=== PATIENT | female | born 1970 | race Caucasian/White ===

== ENCOUNTER 2016-12-17 14:08 | Emergency (ER) | payer BC ==
[2016-10-04 12:24] VITALS: BMI 36.3
[~2016-12-17 14:08] MED LIST: VENTOLIN HFA18 GM INH
== END 2016-12-17 16:40 | disposition home or self-care (01) ==
LOC: D.ER 14:08
DX: S31.811A Laceration without foreign body of right buttock, initial encounter (principal); S51.811A Laceration without foreign body of right forearm, initial encounter; J45.909 Unspecified asthma, uncomplicated; W18.39XA Other fall on same level, initial encounter; Y93.89 Activity, other specified; Y92.019 Unspecified place in single-family (private) house as the place of occurrence of the external cause

== ENCOUNTER 2018-04-24 10:51 | Outpatient (CLI) | payer BC ==
[~2018-04-24] VITALS: Ht 154.9 cm; Wt 89.7 kg
--- NOTE | ~2018-04-24 | OP ---
PATIENT NAME: SHANTEL VALERA MEDICAL RECORD: [id number] :72 LOCATION:D.CAT ADMISSION DATE: SURGEON: AMBAR ENRIQUEZ MD DATE OF OPERATION: 04/24/2018 PROCEDURE: Lead portion of permanent pacemaker placement. INDICATION: Symptomatic bradyarrhythmias. SURGEON: Nhan Tolbert MD DESCRIPTION OF PROCEDURE: After left subclavian was cannulated via modified Seldinger technique via Dr. Tolbert first under fluoroscopic guidance, I placed the RV lead into the RV apex without difficulty. After adequate thresholds and R waves were obtained, again under fluoroscopic guidance, I placed the right atrial lead in right atrial appendage without difficulty. After adequate P waves and thresholds were obtained, lead was attached to appropriate poles of the generator and the pocket was closed via Dr. Tolbert. IMPRESSION: Successful lead portion of permanent pacemaker placement. COMPLICATIONS: None. ESTIMATED BLOOD LOSS: Minimal. DISPOSITION: To the floor, stable. TRANSINT:[id number] Voice Confirmation ID: [id number] DOCUMENT ID: [id number] AMBAR ENRIQUEZ MD at 0849 CC: [id number] DICTATION DATE: 04/24/18 1401 FRONT DESK ATTENDANT: 04/24/18 1422 DEP CLI 04/25/18 [id number] [place] [address]
--- NOTE | ~2018-04-24 | HEMODYNAMI ---
PATIENT:SHANTEL VALERA MEDICAL RECORD: [id number] : 72 LOCATION:SLAVA ADMISSION DATE: 04/24/18 Generatedon:04/24/201814:16 Patient name: SHANTEL VALERA Patient #: [id number] SSN: D OB: 1970 Date of study: 04/24/2018 Page: Of Hemodynamic Procedure Report Patient Data Patient Demographics Procedure consent was obtained First Name: SHANTEL Gender: Female Last Name: SOTO : 1970 [facility] Initial: E Age: 47 year(s) Patient #: [id number] Race: Unknown Additional ID: [id number] Contact details Address: [address] [place] [address] [facility] State: [place] City: [place] Zip code: [address] Past Medical History Allergies Allergen Reaction Date Comments Reported Adhesive tape 10/04/2016 Other allergy 04/24/2018 ADHESIVE TAPE, BANDAID Admission Admission Data Admission Date: 04/24/2018 Admission Time: 10:51 Admit Source: Other Lab Results Lab Result Date: 04/24/2018 Lab Result Time: 0:00 Biochemistry Name Units Result Min Max BUN mg/dl 6 -*(----)-- 7 18 Creatinine mg/dl 0.9 --(-*--)-- 0.6 1.3 CBC Name Units Result Min Max Hemoglobin g/dl 10.7 *-(----)-- 13.5 17.5 Procedure Procedure Types Cath Procedure Diagnostic Procedure PPM/ICD PPM Dual Implant Loop Recorder Removal Sedation Charges Moderate Sedation up to 30 minutes Procedure Description Procedure Date Procedure Date: 04/24/2018 Procedure Start Time: 13:40 Procedure End Time: 14:14 Procedure Staff Name Function Lior Wharton MD Performing Physician Nhan Marion MD Assisting physician Vi Valdes RT Monitor Klever Rodriguez RT Scrub David Guerrero RN Nurse Procedure Data Cath Procedure Fluoroscopy Diagnostic fluoroscopy Total fluoroscopy Time: 1.6 time: 1.6 min min Diagnostic fluoroscopy Total fluoroscopy dose: 23 dose: 23 mGy mGy Estimated blood loss: 10 ml Procedure Complications No complications Procedure Medications Medication Administration Route Dosage Zofran I.V. 4 mg Ancef (1Gm/50ml NS) I.V.P.B 1 g Ancef Irrigation Topical 1 g (1gm/500ml NS) Fentanyl I.V. 50 mcg Versed I.V. 1 mg Fentanyl I.V. 50 mcg Versed I.V. 1 mg Fentanyl I.V. 50 mcg Fentanyl I.V. 50 mcg Hemodynamics Rest HGB: 10.7 (g/dl) Heart Rate: 54 (bpm) Snapshots Pre Cath Intra NCS Post Cath Vital Signs Time Heart Resp SPO2 etCO2 NIBP (mmHg) Rhythm Pain Sedation Rate (ipm) (%) (mmHg) Status Level (bpm) 13:15:39 53 18 100 0 134/78(104) NSR 0 (11) 10(A) , No pain 13:21:03 50 17 98 0 128/80(99) NSR 0 (11) 10(A) , No pain 13:25:31 52 16 99 0 133/74(88) NSR 0 (11) 10(A) , No pain 13:29:53 51 17 99 0 119/74(94) NSR 0 (11) 10(A) , No pain 13:34:13 51 17 98 0 127/68(96) NSR 0 (11) 10(A) , No pain 13:38:36 53 18 99 0 122/70(93) NSR 0 (11) 10(A) , No pain 13:42:57 58 17 100 0 126/77(104) NSR 0 (11) 10(A) , No pain 13:47:22 61 15 93 0 118/69(96) NSR 0 (11) 10(A) , No pain 13:55:19 74 17 94 0 114/72(91) NSR 0 (11) 10(A) , No pain 13:59:41 72 17 96 0 121/69(95) NSR 0 (11) 10(A) , No pain 14:04:05 72 16 100 0 117/72(97) NSR 0 (11) 10(A) , No pain 14:08:26 81 21 100 0 125/72(91) NSR 0 (11) 10(A) , No pain 14:12:50 82 20 97 0 122/77(94) NSR 0 (11) 10(A) , No pain Medications Time Medication Route Dose Verified Delivered Reason Notes Effective ness by by 13:10:35 Zofran I.V. 4 mg Lior David Per [facility] Hector Guerrero RN physician 13:10:43 Ancef I.V.P.B 1 g Lior David Per (1Gm/50ml [facility] Hector Guerrero RN physician NS) 13:10:50 Ancef Topical 1 g Lior David Per Irrigation DioHector Guerrero RN physician (1gm/500ml NS) 13:38:21 Fentanyl I.V. 50 Lior David for [facility] Hector Guerrero RN sedation 13:38:29 Versed I.V. 1 mg Lior David for DioHector Guerrero RN sedation 13:41:11 F[facility]anyl [facility].V. [facility] 13:41:17 Versed I.V. 1 mg Lior David for DioHector Guerrero RN sedation 13:43:49 Fentanyl I.V. 50 Lior David for [facility] Hector Guerrero RN sedation 14:07:08 Fentanyl I.V. 50 [facility] Procedure Log Time Note 12:43:34 Klever Rodriguez RT(R) sent for patient. Start room use. 12:48:56 Informed consent obtained and on chart 12:49:15 Procedure type changed to Cath procedure, Diagnostic procedure, PPM/ICD, PPM Dual Implant, Loop Recorder Removal, Sedation Charges, Moderate Sedation up to 30 minutes 12:49:18 Admit Source: Other 12:49:53 Time tracking: Regular hours (M-F 7:00 - 5:00) 12:49:57 Plan of Care:Hemodynamics will remain stable., Cardiac rhythm will remain stable., Comfort level will be maintained., Respiratory function will remain adequate., Patient/ family verbilizes understanding of procedure., Procedure tolerated without complication., Recovers from procedure without complications.. 12:50:11 H&P Date Dictated: 04/09/2018 Within 30 days and on chart., H&P Addendum completed by physician on day of procedure. (MUST COMPLETE FOR ALL OUTPATIENTS). 12:53:16 Lab Result : BUN 6 mg/dl 12:53:16 Lab Result : Creatinine 0.9 mg/dl 12:53:16 Lab Result : Hemoglobin 10.7 g/dl 12:53:50 Patient allergic to Other allergyADHESIVE TAPE, BANDAID 12:58:05 Patient received from Pre/Post Procedure Room to CCL 3 Alert and oriented. Tansferred to table in Supine position. 12:58:07 Warm blankets applied, and bob hugger turned on for patient comfort. 12:58:08 Correct patient and procedure confirmed by team. 12:58:08 ECG and BP/O2 sat monitors applied to patient. 13:10:35 Zofran 4 mg I.V. was administered by David Guerrero RN; Per physician; 13:10:43 Ancef (1Gm/50ml NS) 1 g I.V.P.B was administered by David Guerrero RN; Per physician; 13:10:50 Ancef Irrigation (1gm/500ml NS) 1 g Topical was administered by David Guerrero RN; Per physician; 13:10:57 Medtronic Advisa MRI PPM Dual Generator [id number] opened to sterile field. 13:10:59 Medtronic 4574-45 PPM Lead opened to sterile field. 13:11:00 Medtronic 4074-52 PPM Lead opened to sterile field. 13:13:55 2-0 Ticron Multipack ([id number]) opened to sterile field. 13:14:03 3-0 Vicryl Single Pack [id number] opened to sterile field. 13:14:21 5-0 Monocryl PS3 [id number] opened to sterile field. 13:14:26 Vital chart was started 13:14:29 Baseline sample Acquired. 13:14:34 Rhythm: sinus bradycardia 13:14:35 Full Disclosure recording started 13:14:36 Pre-procedure instructions explained to patient. 13:14:36 Pre-op teaching completed and patient verbalized understanding. 13:14:38 Family in patients room. 13:14:39 Patient NPO since Midnight. 13:14:41 Is the patient allergic to Iodine/contrast media? No. 13:14:43 Is patient on blood thinner?No 13:14:44 Patient diabetic? No. 13:14:46 Patient not . Patient has had hysterectomy. 13:14:50 Previous problem with sedation/anesthesia? Yes NAUSEA 13:14:52 Snore? No 13:14:53 Sleep apnea? No 13:14:54 Deviated septum? No 13:14:55 Opens mouth fully? Yes 13:15:01 Sticks out tongue? Yes 13:15:06 Airway obstruction? Yes ASTHMA 13:15:09 Dentures? No ? 13:15:14 IV patent on arrival in left hand with 0.9% NaCl at [facility]. 13:15:16 Lab results completed and on chart. 13:24:36 Left chest area was prepped with chlora-prep and draped in sterile fashion 13:24:38 Alarms reviewed by R. N. 13:24:39 Sharps counted by scrub and verified by R.N. 13:27:18 Mepilex Dressing (957804) opened to sterile field. 13:36:01 --------ALL STOP TIME OUT------ 13:36:02 Final Timeout: patient, procedure, and site verified with staff and physician. All members of the team are in agreement. 13:36:06 Left chest site verified by team. 13:36:09 Physical assessment completed. ASA score P 2 - A patient with mild systemic disease as per Lior Wharton MD. 13:36:13 Sedation plan: IV Moderate Sedation Medication:Versed, Fentanyl 13:36:28 Medtronic industrial relations representative [employer]UMMER present for procedure. 13:36:53 Pre sharps counted by scrub and verified by RN: Sutures: 7; Sponges: 5; Stick needles: 2; Skin needles: 2; Blade: 1; Cautery: 1 13:36:56 Grounding pad site Left thigh. 13:36:56 Grounding pad site free from injury. 13:38:21 Fentanyl 50 mcg I.V. was administered by David Guerrero RN; for sedation; 13:38:29 Versed 1 mg I.V. was administered by David Guerrero RN; for sedation; 13:39:34 Procedure started. 13:40:03 Lidocaine 1% w/epi and Bupivacaine 0.5% was administered to left subclavicular area by Nhan Marion MD . 13:40:23 Incision made to left subclavicular area. 13:41:11 Fentanyl 50 mcg I.V. was administered by David Guerrero RN; for sedation; 13:41:17 Versed 1 mg I.V. was administered by David Guerrero RN; for sedation; 13:43:49 Fentanyl 50 mcg I.V. was administered by David Guerrero RN; for sedation; 13:44:25 Generator pocket made/opened. 13:46:25 Left subclavian vein accessed with 7Fr Peel Away Sheath. 13:47:00 Right subclavian vein accessed with 7Fr Peel Away Sheath. 13:49:03 Ventricular lead inserted and advanced. 13:49:05 Atrial lead inserted and advanced. 13:50:40 Ventricular lead positioned. 13:51:10 Ventricular lead tested. 13:51:42 Ventricular lead repositioned. 13:51:45 Ventricular lead tested. 13:52:36 Atrial lead positioned. 13:52:44 Atrial lead tested. 13:54:29 Peel-a-way sheath was split and removed. 13:54:30 Peel-a-way sheath was split and removed. 13:55:05 PPM Dual was attached to lead(s) and inserted into pocket. 13:55:11 PPM Dual was inserted subcutaneously to left chest. 13:57:17 Device pocket was irrigated with Ancef. 13:57:22 Atrial lead attachment was completed with 2-0 ticron. 13:57:27 Ventricular lead attachment was completed with 2-0 ticron. 13:58:11 Subcutaneous closure was completed with 3-0 vicryl plus. 13:58:24 Skin closure was completed with 5-0 monocryl. 13:58:55 Parameters-- Generator: Mode: AAIR/DDDR. Lower Rate: 60bpm. Upper Rate: 120bpm. 13:59:49 Parameters--Ventricular P/R Wave: 5.2mV. Current: .4mA; Threshold: .5V; Impedence: 1068OHMS. 14:00:16 Parameters--Atrial P/R Wave: 4.9mV. Current: .4mA; Threshold: .2V; Impedence: 657OHMS. 14:07:08 Fentanyl 50 mcg I.V. was administered by David Guerrero RN; for sedation; 14:07:11 Lt Chest incision was dressed with Mepilex dressing. 14:07:43 PATIENT REDRAPED AND CLEANED MID CHEST FOR LINQ REMOVAL BY DR. MARION 14:09:47 INCISION SITE DRESSED WITH STERI STRIPS AND SKIN AFFIX 14:10:04 Post sharps counted by scrub and verified by RN: Sutures: 7; Sponges: 5; Stick needles: 2; Skin needles: 2; Blade: 1; Cautery: 1 14:11:55 Procedure ended.(Physican Out) 14:12:16 Fluoroscopy time 01.60 minutes. 14:12:23 Fluoroscopy dose: 23 mGy 14:12:23 Flurop Dose total: 23 14:12:31 Sharps counted by scrub and verified by R.N. 14:12:37 Post-procedure physical assessment completed. ASA score P 2 - A patient with mild systemic disease as per Lior Wharton MD. 14:12:40 Post procedure rhythm: paced 14:12:43 Estimated blood loss: 10 ml 14:12:44 Post procedure instruction explained to patient.Patient verbalizes understanding. 14:12:45 Patient needs reinforcement of post procedure teaching. 14:13:48 Procedure and supply charges have been captured, reviewed, submitted and are correct. 14:13:54 Procedure Complication : No complications 14:13:58 Vital chart was stopped 14:13:58 See physician's report for complete and final results. 14:14:02 Report given to PCU. 14:14:05 Patient transfered to PCU with Bed. 14:14:07 Procedure ended. 14:14:07 Full Disclosure recording stopped 14:14:10 End room use (Document Last) Device Usage Item Name Manufacture Quantity Catalog Hospital Part Current Minimal Lot# / Number Charge Number Stock Stock Serial# Code Medtronic Medtronic 1 [id number] EXP: Advisa MRI 2019-06-02 PPM Dual SN: Generator [id number] Medtronic Medtronic 1 45745 680003 701953 5 EXP [id number] PPM 2019-11-01 Lead SN: [id number] Medtronic Medtronic 1 52 [id number] [id number] 5 EXP 407452 PPM 2018-04-03 Lead SN:[id number] 2-0 Ticron Ethicon 8 [id number] 888009 89586 [id number] 5 Multipack ([id number]) 3-0 Vicryl Ethicon 1 [id number] 149567 [id number] 5 Single Pack [id number] 5-0 Monocryl Ethicon 1 [id number] 609308 245133 5 PS3 [id number] Mepilex Cardinal 1 [id number] 308453 [id number] [id number] 5 [facility] ([id number]) Signature Audit [place] Stage Time Signature Unsigned Intra-Procedure 04/24/2018 Vi Valdes 2:16:40 PM RT(R) Signatures Monitor : Vi Valdes Signature : RT Date : Time : [address] [place] [address]
--- NOTE | ~2018-04-24 | OP ---
PATIENT NAME: SHANTEL VALERA MEDICAL RECORD: [id number] :72 LOCATION:DSALMA ADMISSION DATE: SURGEON: AMBAR ENRIQUEZ MD DATE OF OPERATION: 04/25/2018 PROCEDURE: Lead repositioning. INDICATION: Loss of capture atrial lead with dislodgement towards the tricuspid valve after the previously placed pocked was opened via Dr. Maharaj. Under fluoroscopic guidance, right atrial lead is replaced in the right atrial appendage. After adequate P waves and thresholds were obtained, the lead was reattached to the appropriate poles of the generator and the pocket was closed via Dr. Maharaj. IMPRESSION: Successful repositioning lead. COMPLICATIONS: None. ESTIMATED BLOOD LOSS: Minimal. DISPOSITION: To the floor, stable. TRANSINT:[id number] Voice Confirmation ID: [id number] DOCUMENT ID: [id number] AMBAR ENRIQUEZ MD at 0849 CC: [id number] DICTATION DATE: 04/25/18 1301 SCHEDULING ASSISTANT: 04/25/18 1411 DEP CLI 04/25/18 [id number] [place] [address]
--- NOTE | ~2018-04-24 | OP ---
PATIENT NAME: SHANTEL VALERA MEDICAL RECORD: [id number] :72 LOCATION:D.CAT ADMISSION DATE: SURGEON: JANE MARION MD DATE OF OPERATION: 04/24/2018 PREOPERATIVE DIAGNOSES: 1. Left subclavian vein dual lead pacemaker placement. 2. Fluoroscopic interpretation. 3. LINQ removal. SURGEON: Jane Marion MD CO-SURGEON: Lior Viera MD REPORT OF OPERATION: The patient's left chest was prepped and draped in sterile fashion. A total of 20 mL of 1% lidocaine with epinephrine was infused into the surrounding tissues. A transverse incision was made in the left lateral superior chest and a subcutaneous pouch was made over the pectoral fascia. The left subclavian vein was cannulated times 2 and guidewires were advanced with ease. Fluoro was used to note that the wires were in good position in the venous system. A dilator trocar device was placed over the wires, and the wires and dilators were removed. The 2 leads were positioned in the venous system under fluoroscopic guidance. At this point, Dr. Viera positioned the leads in the atrium and ventricle. Once they were noted to be functioning appropriately, then the leads were sutured into place with 2-0 TiCron. The leads were then affixed to the pacemaker and the pacemaker was placed into the subcutaneous pouch. This was sutured to the pectoral fascia using a single interrupted 2-0 Ti-Cron. The wound was then irrigated with antibiotic solution and the subcutaneous tissues were reapproximated with interrupted 3-0 Vicryl. The skin was closed with running subcutaneous 5-0 Monocryl and dressed appropriately. At this point, we took down the draped and redraped overlying the LINQ device. A total of 10 mL of 1% lidocaine was infused into the surrounding tissues. A skin incision was made overlying the LINQ device. This device was grasped and pulled up through the incision. The entire device was removed. The subcutaneous tissues were inspected and there was no sign of any bleeding. We reapproximated the skin edges with Dermabond and Steri-Strips. COMPLICATIONS: None. CONDITION: Stable. ANESTHESIA: Local MAC. BLOOD LOSS: Minimal. TRANSINT:[id number] Voice Confirmation ID: [id number] DOCUMENT ID: [id number] OPERATIVE REPORT [id number] SHANTEL VALERA CHRISTIAN MD at 1147 CC: [id number] DICTATION DATE: 04/24/18 1416 SUPERVISOR ACCOUNTING CLERKS: 04/24/18 1619 DEP CLI 04/25/18 [address] [place] [address]
--- NOTE | ~2018-04-24 | HEMODYNAMI ---
PATIENT:LISA VALERA MEDICAL RECORD: [id number] : 72 [facility] [id number] ADMISSION DATE: 04/24/18 Generatedon:04/25/201813:09 Patient name: LISA VALERA Patient #: [id number] SSN: D OB: 1970 Date of study: 04/25/2018 Page: Of Hemodynamic Procedure Report Patient Data Patient Demographics Procedure consent was obtained First Name: LISA Gender: Female Last Name: SOTO : 1970 Middle Initial: E Age: 47 year(s) Patient #: [id number] Race: Unknown Additional ID: [id number] Contact details Address: [address] [place] [address] [facility] State: [place] City: [place] Zip code: [address] Past Medical History Allergies Allergen Reaction Date Comments Reported Adhesive tape 10/04/2016 Other allergy 04/24/2018 ADHESIVE TAPE, BANDAID Admission Admission Data Admission Date: 04/24/2018 Admission Time: 10:51 Admit Source: Other Room #: D.2123 Lab Results Lab Result Date: 04/24/2018 Lab Result Time: 0:00 Biochemistry Name Units Result Min Max BUN mg/dl 6 -*(----)-- 7 18 Creatinine mg/dl 0.9 --(-*--)-- 0.6 1.3 CBC Name Units Result Min Max Hemoglobin g/dl 10.7 *-(----)-- 13.5 17.5 Procedure Procedure Types Cath Procedure Diagnostic Procedure PPM/ICD Permanent Pacer Lead Repos. Sedation Charges Moderate Sedation up to 15 minutes Procedure Description Procedure Date Procedure Date: 04/25/2018 Procedure Start Time: 12:47 Procedure End Time: 13:07 Procedure Staff Name Function Lior Enriquez MD Performing Physician Jared Brunner MD Assisting physician Lisa Garcia RT Monitor Ramy Edgar RT Scrub David Guerrero RN Nurse Procedure Data Cath Procedure Fluoroscopy Diagnostic fluoroscopy Total fluoroscopy Time: 0.7 time: 0.7 min min Diagnostic fluoroscopy Total fluoroscopy dose: 14 dose: 14 mGy mGy Estimated blood loss: 5 ml Procedure Complications No complications Procedure Medications Medication Administration Route Dosage Ancef (1Gm/50ml NS) I.V.P.B 1 g Ancef Irrigation Topical 1 g (1gm/500ml NS) 0.9% NaCl I.V. 100 ml/hr Zofran I.V. 4 mg Fentanyl I.V. 50 mcg Versed I.V. 1 mg Fentanyl I.V. 50 mcg Versed I.V. 1 mg Hemodynamics Rest HGB: 10.7 (g/dl) Heart Rate: 56 (bpm) Snapshots Pre Cath Intra NCS Post Cath Vital Signs Time Heart Resp SPO2 etCO2 NIBP (mmHg) Rhythm Pain Sedation Rate (ipm) (%) (mmHg) Status Level (bpm) 12:35:31 56 17 99 32.1 104/78(94) NSR 0 (11) 10(A) , No pain 12:39:44 74 17 98 31.4 124/72(101) NSR 0 (11) 10(A) , No pain 12:44:01 74 17 99 34.4 125/77(93) NSR 0 (11) 9(A) , No pain 12:48:13 80 16 96 27.6 102/66(80) NSR 0 (11) 9(A) , No pain 12:52:25 83 17 95 32.1 105/68(84) NSR 0 (11) 9(A) , No pain 12:56:35 90 16 96 33.6 125/81(99) NSR 0 (11) 9(A) , No pain 13:00:49 103 17 99 22.4 121/77(96) NSR 0 (11) 9(A) , No pain 13:05:03 101 19 99 19.4 120/81(94) NSR 0 (11) 9(A) , No pain Medications Time Medication Route Dose Verified Delivered Reason Notes Effective ness by by 12:42:12 Ancef I.V.P.B 1 g Lior Hernandez Per (1Gm/50ml [facility] Hector Guerrero RN physician NS) 12:42:17 Ancef Topical 1 g Lior Hernandez Per Irrigation [facility] Hector Guerrero RN physician (1gm/500ml NS) 12:42:27 0.9% NaCl I.V. 100 Lior Hernandez Per ml/hr [facility] Hector Guerrero RN physician 12:42:41 Zofran I.V. 4 mg Lior Hernandez for [facility] Hector Guerrero RN nausea MD 12:43:20 Fentanyl I.V. 50 Lior Hicksy for [facility] Hector Guerrero RN sedation 12:43:27 Versed I.V. 1 mg Lior Hernandez for [facility] Hector Guerrero RN sedation 12:50:24 Fentanyl I.V. 50 Lior Hicksy for [facility] Hector Guerrero RN sedation 12:50:29 Versed I.V. 1 [address] [facility] Guerrero RN sedation Procedure Log Time Note 12:04:45 Time tracking: Regular hours (M-F 7:00 - 5:00) 12:04:48 Plan of Care:Hemodynamics will remain stable., Cardiac rhythm will remain stable., Comfort level will be maintained., Respiratory function will remain adequate., Patient/ family verbilizes understanding of procedure., Procedure tolerated without complication., Recovers from procedure without complications.. 12:05:40 Ramy Edgar RT(R) sent for patient. Start room use. 12:22:12 Patient received from PCU to CCL 3 Alert and oriented. Tansferred to table in Supine position. 12:22:13 Warm blankets applied, and bob hugger turned on for patient comfort. 12:22:14 Correct patient and procedure confirmed by team. 12:22:15 Signed procedure consent form obtained from patient. 12:22:16 ECG and BP/O2 sat monitors applied to patient. 12:22:17 Full Disclosure recording started 12:25:37 PATIENT BROUGHT BACK TO LAB FOR ATRIAL LEAD REVISION 12:34:18 Vital chart was started 12:34:23 Rhythm: paced 12:34:37 H&P Date Dictated: 04/09/2018 Within 30 days and on chart., H&P Addendum completed by physician on day of procedure. (MUST COMPLETE FOR ALL OUTPATIENTS). 12:34:38 Pre-procedure instructions explained to patient. 12:34:39 Pre-op teaching completed and patient verbalized understanding. 12:34:40 Family in patients room. 12:34:42 Patient NPO since Midnight. 12:34:52 Is the patient allergic to Iodine/contrast media? No. 12:34:53 Is patient on blood thinner?No 12:34:55 Patient diabetic? No. 12:35:33 Previous problem with sedation/anesthesia? Yes NAUSEA 12:35:35 Snore? No 12:35:35 Sleep apnea? No 12:35:36 Deviated septum? No 12:35:37 Opens mouth fully? Yes 12:35:38 Sticks out tongue? Yes 12:35:42 Airway obstruction? Yes ASTHMA 12:35:44 Dentures? No ? 12:35:47 Patient pain scale 0/10 ?. 12:35:58 IV patent on arrival in left forearm with 0.9% NaCl at [facility]. 12:36:05 Lab results completed and on chart. 12:36:16 Left chest area was prepped with chlora-prep and draped in sterile fashion 12:36:16 Alarms reviewed by R. N. 12:36:17 Sharps counted by scrub and verified by R.N. 12:36:22 Use device set NORRED PPM 12:36:27 Tegaderm 4 x 4 ([id number]) opened to sterile field. 12:36:28 Stapler Skin 35W Proximate Plus (PMW35) opened to sterile field. 12:36:36 Cautery Tip [employer] Mer[employer] opened to sterile field. 12:36:37 Cautery Pushbutton Pencil opened to sterile field. 12:36:39 2-0 Silk 685H opened to sterile field. 12:36:40 2-0 Vicryl Plus [id number] opened to sterile field. 12:36:54 [employer] member service representative INGA PLUMMER present for procedure. 12:37:04 Pre sharps counted by scrub and verified by RN: Sutures: 2; Sponges: 5; Stick needles: 0; Skin needles: 2; Blade: 1; Cautery: 1 12:37:06 Grounding pad site Right thigh. 12:37:08 Grounding pad site free from injury. 12:38:00 DR BRUNNER SCRUBBED IN 12:39:19 Baseline sample Acquired. 12:39:27 Final Timeout: patient, procedure, and site verified with staff and physician. All members of the team are in agreement. 12:39:30 Left chest site verified by team. 12:39:33 Physical assessment completed. ASA score P 2 - A patient with mild systemic disease as per Lior Enriquez MD. 12:39:37 Sedation plan: IV Moderate Sedation Medication:Versed, Fentanyl 12:42:12 Ancef (1Gm/50ml NS) 1 g I.V.P.B was administered by David Guerrero RN; Per physician; 12:42:17 Ancef Irrigation (1gm/500ml NS) 1 g Topical was administered by David Guerrero RN; Per physician; 12:42:27 0.9% NaCl 100 ml/hr I.V. was administered by David Guerrero RN; Per physician; 12:42:41 Zofran 4 mg I.V. was administered by David Guerrero RN; for nausea; 12:43:20 Fentanyl 50 mcg I.V. was administered by David Guerrero RN; for sedation; 12:43:27 Versed 1 mg I.V. was administered by David Guerrero RN; for sedation; 12:46:27 Procedure started. 12:47:12 Lidocaine 1% was administered to left subclavicular area by Jared Brunner MD . 12:48:48 GENERATOR POCKET OPENED FOR LEAD REVISION 12:50:24 Fentanyl 50 mcg I.V. was administered by David Guerrero RN; for sedation; 12:50:29 Versed 1 mg I.V. was administered by David Guerrero RN; for sedation; 12:51:31 PPM Dual was removed.. 12:52:59 DR ENRIQUEZ SCRUBBED IN 12:55:37 Atrial lead repositioned. 12:55:59 Atrial lead tested. 12:57:10 DR ENRIQUEZ SCRUBBED OUT 12:58:11 Atrial lead attachment was completed with 2-0 silk. 12:58:17 PPM Dual was attached to lead(s) and inserted into pocket. 12:59:45 Subcutaneous closure was completed with 2-0 vicryl. 13:00:30 Parameters--Atrial P/R Wave: 1.6mV. Current: 0.4mA; Threshold: 0.5V; Impedence: 637OHMS. 13:04:12 Skin closure was completed with 35mm Alexandro. 13:04:24 DR BRUNNER SCRUBBED OUT 13:04:27 Procedure ended.(Physican Out) 13:05:00 Fluoroscopy time 00.70 minutes. 13:05:02 Fluoroscopy dose: 14 mGy 13:05:02 Flurop Dose total: 14 13:05:06 Sharps counted by scrub and verified by R.N. 13:05:21 Post sharps counted by scrub and verified by RN: Sutures: 2; Sponges: 5; Stick needles: 0; Skin needles: 2; Blade: 1; Cautery: 1 13:05:27 Insertion/operative site no bleeding no hematoma. 13:05:59 Post-procedure physical assessment completed. ASA score P 2 - A patient with mild systemic disease as per Lior Enriquez MD. 13:06:02 Post procedure rhythm: unchanged. 13:06:05 Estimated blood loss: 5 ml 13:06:06 Post procedure instruction explained to patient.Patient verbalizes understanding. 13:06:07 Patient needs reinforcement of post procedure teaching. 13:06:56 Procedure type changed to Cath procedure, Diagnostic procedure, PPM/ICD, Permanent Pacer Lead Repos., Sedation Charges, Moderate Sedation up to 15 minutes 13:07:05 Procedure Complication : No complications 13:07:09 See physician's report for complete and final results. 13:07:33 Procedure and supply charges have been captured, reviewed, submitted and are correct. 13:07:41 Vital chart was stopped 13:07:43 Report given to PCU. 13:07:46 Patient transfered to PCU with Bed. 13:07:58 Procedure ended. 13:07:58 Full Disclosure recording stopped 13:08:01 End room use (Document Last) Device Usage Item Name Manufacture Quantity Catalog Hospital Part Current Minimal Lot # / Number Charge Number Stock Stock Serial# Code Tegaderm 4 3M 1 [id number] 5 x 4 (1626W) Stapler Unknown 1 PMW35 [id number] 5 Skin 35W Proximate Plus (PMW35) Cautery [employer] 1 [id number] 5 [employer] Wholesale [employer] Retail Merchant Cautery [employer] 1 [id number] 5 [employer] Pencil 2-0 Silk Ethicon 1 685H [id number] 5 685H 2-0 Vicryl Ethicon 1 [id number] 5 Plus [id number] Signature Audit [facility] Time Signature Unsigned Intra-Procedure 04/25/2018 Lisa 1:09:17 PM Counts RT(R) Signatures Monitor : Lisa Signature : Counts RT Date : Time : [address] [place] [address]
[2018-04-24] MEDS ORDERED: CELEXA20 MG PO (11:16)
[2018-04-24 11:26] VITALS: BP 128/70; BMI 36.9
[2018-04-24 11:40] LABS: HEMATOCRIT 35.3 % (36.0-48.0); HEMOGLOBIN 10.7 g/dL (12-16); MCH 22.4 pg (26.0-34.0); MCHC 30.3 g/dL (31.0-37.0); MCV 73.8 fL (80.0-100.0); RBC 4.78 10x6/uL (4.00-5.40); RDW 15.1 % (11.5-14.5); WBC 7.3 10x3/uL (4.8-10.8)
[2018-04-24 11:55] LABS: INR 1.12 (0.85-1.17)
[2018-04-24 11:56] LABS: APTT 26.6 SECONDS (22.8-39.4)
[2018-04-24 12:01] LABS: ANION GAP 11.9 mmol/L (8-16); CALCIUM 8.8 mg/dL (8.5-10.1); CARBON DIOXIDE 28.1 mmol/L (21.0-32.0); CREATININE - SERUM 0.9 mg/dL (0.6-1.3)
[2018-04-24 14:43] VITALS: BP 104/76; Ht 154.9 cm; Wt 89.7 kg
[2018-04-24 20:24] VITALS: BP 143/67
[2018-04-24 20:29] VITALS: BP 108/64
[2018-04-25 01:38] VITALS: BP 113/68
[2018-04-25 04:54] VITALS: BP 98/68
[2018-04-25 08:44] VITALS: BP 112/75
[2018-04-25 12:15] VITALS: BP 107/67
== END 2018-04-25 15:39 | disposition home or self-care (01) ==
LOC: D.CATH 10:51 → D.M2 10:51 → D.CATH 13:00 → D.M2 14:24 → D.CATH 04-25 15:39
PROVIDERS: Internal Medicine Interventional Cardiology
DX: I49.5 Sick sinus syndrome (principal); R00.2 Palpitations; R53.83 Other fatigue; I49.3 Ventricular premature depolarization; Z01.812 Encounter for preprocedural laboratory examination

== ENCOUNTER → 2019-09-30 10:41 | Outpatient (CLI) | payer OTHER ==
[2018-04-24 14:43] VITALS: BMI 36.9
[~2019-09-30 10:41] MED LIST changes: +CELEXA20 MG PO
== END | disposition home or self-care (01) ==
LOC: D.HCCECHO 10:41 → D.HCCARDIO 11:00
PROVIDERS: ATTEND Internal Medicine Cardiovascular Disease
DX: I08.1 Rheumatic disorders of both mitral and tricuspid valves (principal)